=== PATIENT | female | born 1955 | race Caucasian/White ===

== ENCOUNTER 2016-07-23 06:31 | Day surgery (SDC) | payer MEDICAID ==
[2016-07-21 11:48] LABS: BASOPHILS 0.1 % (0-2); EOSINOPHILS 3.6 % (0-7); HEMATOCRIT 50.8 % (36.0-48.0); HEMOGLOBIN 16.7 g/dL (12-16); IMMATURE GRANULOCYTES 0.1 % (0-5); LYMPHOCYTES 31.1 % (15-50); MCH 31.3 pg (26.0-34.0); MCHC 32.9 g/dL (31.0-37.0); MCV 95.3 fL (80.0-100.0); MEAN PLATELET VOLUME 10.5 fL (7.4-10.4); MONOCYTES 5.4 % (2-11); NEUTROPHILS 59.7 % (40-80); PLATELET COUNT 231 10x3/uL (130-400); RBC 5.33 10x6/uL (4.00-5.40); RDW 13.4 % (11.5-14.5); WBC 7.6 10x3/uL (4.8-10.8)
[2016-07-21 11:57] LABS: CALC OSMOLALITY 271 mosm/kg (275-300); CALCIUM 9.4 mg/dL (8.5-10.1); CARBON DIOXIDE 32.6 mmol/L (21.0-32.0); CHLORIDE - SERUM 97 mmol/L (98-107); CREATININE - SERUM 0.6 mg/dL (0.6-1.3); GLUCOSE 102 mg/dL (74-106); POTASSIUM - SERUM 4.8 mmol/L (3.5-5.1); SODIUM 135 mmol/L (136-145); UREA NITROGEN 18 mg/dL (7-18); eGFR NON AFRICAN AMERICAN > 90 mL/min (90-120)
[~2016-07-23] VITALS: Ht 160 cm; Wt 80.3 kg
--- NOTE | 2016-07-23 06:27 | HP ---
PATIENT: VIRGINIA VENTURA MEDICAL RECORD: [id number] ACCOUNT: [id number] LOCATION:[facility] : 55 ADMISSION DATE: 07/23/16 HISTORY AND PHYSICAL EXAMINATION HISTORY OF PRESENT ILLNESS: This patient is a 61-year-old 2, para 2 white female referred for a high-grade ARIADNA Pap smear and for postmenopausal bleeding. She has undergone cervical cultures and an ultrasound in this office revealing a uterus of 6 cm in length and endometrial thickness of 0.64 cm, small left ovary, small right ovary consistent with menopausal status. There is also mention of an anterior endometrial lesion polyp versus neoplasm. She is scheduled for exam under anesthesia with colposcopy, indicated biopsies of cervix, possible LEEP, as well as hysteroscopy, endometrial biopsies and endometrial curettage. PAST MEDICAL HISTORY: DRUG ALLERGIES: None known. CURRENT MEDICATIONS: Levetiracetam, alprazolam, methocarbamol, citalopram, baby aspirin, ranitidine, quetiapine, primidone, hydrocodone compound, cyclobenzaprine, lisinopril, pravastatin and diltiazem. MEDICAL PROBLEMS: Include Parkinson's. She is wheelchair bound. FAMILY HISTORY: Incomplete and noncontributory. DRUG ALLERGIES: None known. PHYSICAL EXAMINATION: VITAL SIGNS: Weight is 179, blood pressure 100/60. HEENT: Grossly unremarkable. LUNGS: Clear. HEART: Regular rate and rhythm. PELVIC: Deferred for anesthesia. EXTREMITIES: No cyanosis, clubbing or edema. NEUROLOGIC: Grossly appears intact; however, the patient is wheelchair bound and carries a diagnosis of Parkinson's. IMPRESSION: Postmenopausal bleeding, Pap smear read as high-grade ARIADNA. PLAN: Examination under general anesthesia with colposcopy, possible LEEP, cervical biopsies, endocervical curettage, cervical dilatation, as well as hysteroscopy, evaluation of the endometrium with appropriate biopsies, and endometrial curettage. I have discussed all these possibilities with the patient in the presence of her access control specialist and answered all their questions. TRANSINT:[id number] Voice Confirmation ID: [id number] DOCUMENT ID: [id number] HISTORY AND PHYSICAL [id number] VIRGINIA VENTURA BRENDA MD at 0627 CC: [id number] DICTATION DATE: 07/21/16 1434 RAT FARMER: 07/21/16 1626 PRE [facility] [address], [facility]901
[~2016-07-23 06:31] MED LIST: ATIVAN1 MG PO; CARAFATE1 G PO; CHANTIX 1 MG TAB1 MG PO; NORCO 10/325 TA1 TA1 PO; PARLODEL2.5 MG PO; PHENERGAN25 M1 PO; SOMA350 MG PO; VALIUM5 MG PO; XANAX1 MG PO
[2016-07-23] MEDS ORDERED: LISINOPRIL10 MG PO (08:23)
[2016-07-23] MEDS ORDERED: KEPPRA750 MG PO (08:26)
[2016-07-23] MEDS ORDERED: ROBAXIN-750750 MG PO (08:27)
[2016-07-23] MEDS ORDERED: PRAVACHOL20 MG PO (08:28)
[2016-07-23] MEDS ORDERED: MYSOLINE 50 MG50 MG PO (08:29)
[2016-07-23] MEDS ORDERED: BAYER CHEWABLE81 MG PO (08:30)
[2016-07-23] MEDS ORDERED: ZANTAC150 MG PO (08:30)
[2016-07-23 08:34] VITALS: BP 102/55; Ht 160 cm; Wt 80.3 kg
--- NOTE | 2016-07-23 12:25 | NUR ---
ANESTHESIA REPORTS THE PATIENT IS ON HOME O2 AND HAS A HISTORY OF RESPIRITORY PROBLEMS
--- NOTE | 2016-07-24 07:34 | OP ---
PATIENT NAME: VIRGINIA VENTURA MEDICAL RECORD: [id number] :55 LOCATION:D.[facility] ADMISSION DATE: SURGEON: ANIYAH ABRAHAM MD DATE OF OPERATION: 07/23/2016 PREOPERATIVE DIAGNOSES: 1. High-grade squamous intraepithelial lesion Pap. 2. Postmenopausal bleeding. POSTOPERATIVE DIAGNOSES: 1. High-grade squamous intraepithelial lesion Pap. 2. Postmenopausal bleeding. 3. Cervical lesion, abnormal appearing endometrium. PROCEDURES: Examination under anesthesia, evaluation of the cervix using the colposcope, endometrium evaluated, endometrial and cervical biopsies taken, hysteroscopy, and endometrial curettage. SURGEON: Aniyah Abraham MD ANESTHESIA: General. FINDINGS: A narrow vagina, cervix difficult to fully visualize, a friable lesion on the cervix and a shaggy-appearing endometrium on hysteroscopy. ESTIMATED BLOOD LOSS: 50 cc. COMPLICATIONS OF PROCEDURE: None. OPERATIVE NOTE: The patient was taken to the OR and under adequate general anesthesia, prepped and draped in the usual manner for vaginal procedures. Examination under anesthesia revealed the above listed findings. The vagina was very narrow and the cervix was deviated posteriorly making full visualization of the lesions very difficult, bleeding continued throughout the procedure. The cervix was dilated to accept the hysteroscope and hysteroscopic evaluation revealed the above listed findings. The depth of the endometrial cavity was approximately 6.5 cm. Random biopsies were taken of the shaggy-appearing endometrium. The hysteroscope was then removed followed by a thorough endometrial curettage. Biopsies were taken of the cervix and sent separately. At the end of procedure, bleeding was mild and the patient went to the recovery area in good condition. TRANSINT:[id number] Voice Confirmation ID: [id number] DOCUMENT ID: [id number] ANIYAH ABRAHAM MD at 0734 CC: [id number] DICTATION DATE: 07/23/16 1212 TOP LIFTER: 07/23/161919 [facility] 07/23/16 [facility] [address] [place] [address]
== END 2016-07-23 14:05 | disposition home or self-care (01) ==
LOC: D.OPS 06:31 → D.PAN 09:45 → D.OPS 14:05
PROVIDERS: Obstetrics & Gynecology
DX: N95.0 Postmenopausal bleeding (principal); F17.200 Nicotine dependence, unspecified, uncomplicated; K21.9 Gastro-esophageal reflux disease without esophagitis; J44.9 Chronic obstructive pulmonary disease, unspecified; R53.1 Weakness

== ENCOUNTER 2016-08-24 20:10 | Observation (INO) | payer MEDICAID ==
[~2016-08-24] VITALS: Ht 160 cm; Wt 73.3 kg
[~2016-08-24 20:10] MED LIST changes: +BAYER CHEWABLE81 MG PO; +KEPPRA750 MG PO; +LISINOPRIL10 MG PO; +MYSOLINE 50 MG50 MG PO; +PRAVACHOL20 MG PO; +ROBAXIN-750750 MG PO; +ZANTAC150 MG PO
[2016-08-24 20:42] LABS: BASOPHILS 0.1 % (0-2); EOSINOPHILS 6.8 % (0-7); HEMATOCRIT 45.6 % (36.0-48.0); IMMATURE GRANULOCYTES 0.2 % (0-5); LYMPHOCYTES 34.9 % (15-50); MCH 31.1 pg (26.0-34.0); MCHC 32.9 g/dL (31.0-37.0); MCV 94.4 fL (80.0-100.0); MEAN PLATELET VOLUME 10.9 fL (7.4-10.4); MONOCYTES 7.9 % (2-11); NEUTROPHILS 50.1 % (40-80); PLATELET COUNT 212 10x3/uL (130-400); RBC 4.83 10x6/uL (4.00-5.40); RDW 13.6 % (11.5-14.5)
[2016-08-24 21:01] LABS: ALKALINE PHOSPHATASE 84 U/L (46-116); ALT (SGPT) 62 U/L (10-68); BILIRUBIN - TOTAL 0.42 mg/dL (0.2-1.3); CALC OSMOLALITY 281 mosm/kg (275-300); CALCIUM 9.3 mg/dL (8.5-10.1); CARBON DIOXIDE 29.3 mmol/L (21.0-32.0); CHLORIDE - SERUM 102 mmol/L (98-107); CREATININE - SERUM 0.5 mg/dL (0.6-1.3); GLUCOSE 119 mg/dL (74-106); POTASSIUM - SERUM 3.3 mmol/L (3.5-5.1); PROTEIN - SERUM 7.6 g/dL (6.4-8.2); SODIUM 139 mmol/L (136-145); UREA NITROGEN 22 mg/dL (7-18); eGFR NON AFRICAN AMERICAN > 90 mL/min (90-120)
[2016-08-24 22:54] LABS: APPEARANCE HAZY (CLEAR); BILIRUBIN NEGATIVE (NEGATIVE); COLOR YELLOW (YELLOW); GLUCOSE NEGATIVE (NEGATIVE); KETONE MODERATE mg/dL (NEGATIVE); LEUKOCYTE ESTERASE 1+ (NEGATIVE); NITRITE NEGATIVE (NEGATIVE); PROTEIN TRACE mg/dL (NEGATIVE); SPECIFIC GRAVITY 1.015 (1.005-1.020); UROBILINOGEN NORMAL (NORMAL)
[2016-08-24 22:56] LABS: BACTERIA FEW /hpf (NONE SEEN); RED CELLS - URINE 0-5 /hpf (0-5); UDS - AMPHET NEGATIVE QUAL (NEGATIVE); UDS - BARB POSITIVE QUAL (NEGATIVE); UDS - BENZO POSITIVE QUAL (NEGATIVE); UDS - COCAINE NEGATIVE QUAL (NEGATIVE); UDS - METH NEGATIVE QUAL (NEGATIVE); UDS - OPIATE NEGATIVE QUAL (NEGATIVE); UDS - PCP NEGATIVE QUAL (NEGATIVE); UDS - THC POSITIVE QUAL (NEGATIVE)
[2016-08-25 04:00] VITALS: BP 116/63
[2016-08-25 04:34] VITALS: BP 116/63; BMI 31.9
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
--- NOTE | 2016-08-25 07:21 | NUR ---
0648-AM ROUNDING DONE WITH PATIENT TELLING ME SHE "DOES NOT LIKE THE NAME CHAYITO". PATIENT IS ON 2L PER NC. RIGHT WRIST SEEN WITH NS INFUSING AT 75 CC/HR WITHOUT PROBLEMS. WORD SALAD, FLIGHT OF IDEAS WITH NO RANDOM THOUGHTS SHE IS TALKING TO ME. WILL CONTINUE TO MONITOR. BED ALARM IS ON.
[2016-08-25 08:22] VITALS: BP 127/74
--- NOTE | 2016-08-25 09:51 | NUR ---
NAN JORGENSEN IS ON THE PHONE. PATIENT STATES THAT I CAN TALK TO HER.
--- NOTE | 2016-08-25 10:20 | NUR ---
PATIENT IS SITTING ON SIDE OF BED WITH BED ALARM ON TALKING TO SELF. PLEASENT AFFECT. REPORTS THAT "LADY IN BLUE WITH WHITE COAT GOOD, CHAYITO GOOD NOW".
[2016-08-25 11:43] VITALS: BP 151/79
[2016-08-25 12:22] VITALS: Ht 160 cm; Wt 73.3 kg
[2016-08-25 13:04] LABS: BASOPHILS 0.1 % (0-2); EOSINOPHILS 8.2 % (0-7); HEMATOCRIT 45.8 % (36.0-48.0); HEMOGLOBIN 14.8 g/dL (12-16); IMMATURE GRANULOCYTES 0.3 % (0-5); LYMPHOCYTES 27.7 % (15-50); MCH 30.6 pg (26.0-34.0); MCHC 32.3 g/dL (31.0-37.0); MCV 94.8 fL (80.0-100.0); MEAN PLATELET VOLUME 11.4 fL (7.4-10.4); MONOCYTES 10.1 % (2-11); NEUTROPHILS 53.6 % (40-80); PLATELET COUNT 208 10x3/uL (130-400); RBC 4.83 10x6/uL (4.00-5.40); RDW 13.5 % (11.5-14.5); WBC 7.5 10x3/uL (4.8-10.8)
[2016-08-25 13:23] LABS: ALBUMIN 2.8 g/dL (3.4-5.0); ALKALINE PHOSPHATASE 78 U/L (46-116); ALT (SGPT) 60 U/L (10-68); CALC OSMOLALITY 281 mosm/kg (275-300); CALCIUM 8.5 mg/dL (8.5-10.1); CARBON DIOXIDE 30.2 mmol/L (21.0-32.0); CHLORIDE - SERUM 103 mmol/L (98-107); CREATININE - SERUM 0.5 mg/dL (0.6-1.3); GLUCOSE 106 mg/dL (74-106); POTASSIUM - SERUM 3.5 mmol/L (3.5-5.1); PROTEIN - SERUM 7.3 g/dL (6.4-8.2); SODIUM 141 mmol/L (136-145); eGFR NON AFRICAN AMERICAN > 90 mL/min (90-120)
[2016-08-25 13:24] LABS: UREA NITROGEN 15 mg/dL (7-18)
--- NOTE | 2016-08-25 15:15 | NUR ---
SCD'S ON BILATERAL LE
--- NOTE | 2016-08-25 17:35 | NUR ---
SITTING ON SIDE OF BED EATING SUPPER, CONSTANTLY TALKING TO SELF. AFFECT IS PLEASANT, NO COMBATIVNESS THIS SHIFT. BED ALARM IS ON. WILL CONTINUE TO FOLLOW AND ASSESS OFTEN.
--- NOTE | 2016-08-25 19:28 | NUR ---
ASSESSMENT COMPLETE, PT ALERT, CONFUSED TO SITUATION, PLACED AND TIME, PT DOES STATE CORRECTLY STATE NAME. RESPERATIONS EVEN ON RA. IV TO RIGHT WRIST WITH NS AT 75 CC/HR. SITE CLEAN AND DRY. PT CONSTANTLY TALKING, AND REPEATING EVERYTHING THAT SHE HEARS OTHER PEOPLE SAY. PT DENIES PAIN OR NEEDS, BED LOW, CL IN REACH, BED ALARM ON.
[2016-08-25 20:00] VITALS: BP 149/77
--- NOTE | 2016-08-25 22:16 | NUR ---
HS MEDS GIVEN WITH FRESH ICE WATER, CUP OF ORANGE JUICE GIVEN AT PT REQUEST. BED LOW, CL IN REACH, WILL CONT TO MONITOR.
--- NOTE | 2016-08-26 01:41 | NUR ---
RESTING WITH EYES CLOSED, RESPERATIONS EVEN, NO S/S DSITRESS NOTED.
--- NOTE | 2016-08-26 03:31 | NUR ---
UP WITH ASSIST TO BR, GAIT UNSTEADY, PT ABLE TO FOLLOW DIRECTIONS WELL.
--- NOTE | 2016-08-26 04:28 | NUR ---
PT TRYING TO GET OUT OF BED, GETTING AGITATED WITH STAFF, ATIVAN 1 MG GIVEN FOR S/S AGITATION.
[2016-08-26 05:25] LABS: BASOPHILS 0.1 % (0-2); EOSINOPHILS 7.1 % (0-7); HEMATOCRIT 45.3 % (36.0-48.0); HEMOGLOBIN 14.4 g/dL (12-16); IMMATURE GRANULOCYTES 0.3 % (0-5); LYMPHOCYTES 30.2 % (15-50); MCH 30.4 pg (26.0-34.0); MCHC 31.8 g/dL (31.0-37.0); MCV 95.8 fL (80.0-100.0); MEAN PLATELET VOLUME 11.2 fL (7.4-10.4); MONOCYTES 8.5 % (2-11); NEUTROPHILS 53.8 % (40-80); PLATELET COUNT 228 10x3/uL (130-400); RBC 4.73 10x6/uL (4.00-5.40); RDW 13.6 % (11.5-14.5); WBC 7.3 10x3/uL (4.8-10.8)
[2016-08-26 06:18] LABS: ALBUMIN 2.7 g/dL (3.4-5.0); ALKALINE PHOSPHATASE 78 U/L (46-116); ALT (SGPT) 58 U/L (10-68); CALC OSMOLALITY 284 mosm/kg (275-300); CALCIUM 8.3 mg/dL (8.5-10.1); CARBON DIOXIDE 28.2 mmol/L (21.0-32.0); CHLORIDE - SERUM 105 mmol/L (98-107); CREATININE - SERUM 0.5 mg/dL (0.6-1.3); GLUCOSE 135 mg/dL (74-106); POTASSIUM - SERUM 3.6 mmol/L (3.5-5.1); PROTEIN - SERUM 7.2 g/dL (6.4-8.2); SODIUM 142 mmol/L (136-145); UREA NITROGEN 13 mg/dL (7-18); eGFR NON AFRICAN AMERICAN > 90 mL/min (90-120)
--- NOTE | 2016-08-26 07:26 | NUR ---
AM ROUNDING DONE WITH PATIENT RECEIVING BREATHING TREATMENT. PATIENT TALKING TO SELF AROUND THE MOUTHPEICE. ON 2L PER NC. BED ALARM IS ON. RIGHT WRIST SEEN WITH NS INFUSING AT 75 CC/HR. ON EP, LAB VALUES ARE WNL. WILL MONITOR.
[2016-08-26 09:06] VITALS: BP 150/76
[2016-08-26 11:57] VITALS: BP 147/84
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
--- NOTE | 2016-08-26 14:55 | NUR ---
PATIENT IS RESTING WITH EYES CLOSED. RESP ARE EVEN AND NON LAOBRED. BED ALARM ON.
[2016-08-26 16:03] VITALS: BP 142/72
--- NOTE | 2016-08-26 16:43 | NUR ---
Rehab Note- Acute Rehab Prescreen order received. The patient has Medicaid and does not Acute Rehab benefits. Thank you for this referral! Danya Tolbert RN Clinical Liaison, [facility] Rehab
--- NOTE | 2016-08-26 17:15 | NUR ---
PATIENT BILATERAL LOWER ARMS ARE STARTING TO BE SLIGHTLY SWOLLEN, NOT AT IV SITE. ENCOURAGED PATIENT TO KEEP ARMS ELEVATED ON CHEST TO HELP WITH SWELLING. WILL CONTINUE TO MONITOR.
[2016-08-26 19:00] VITALS: BP 145/81
--- NOTE | 2016-08-26 19:00 | NUR ---
Patient Name: VIRGINIA VENTURA Admission Status: ER Accout number: [id number] Admission Date: 08-25-2016 : 1955 Admission Diagnosis: Attending: DANIELA Current LOS: 1 Anticipated DC Date: 08-27-2016 Planned Disposition: Home with Home Health Primary Insurance: MEDICAID [place] PLANNED EXTERNAL PROVIDER: [facility] Discharge Planning Comments: * Is the patient Alert and Oriented? Yes 0 * How many steps to enter\exit or inside your home? NONE 0 * PCP DR DE LA ROSA IN [place] 0 * Pharmacy [facility] [address] 0 * Preadmission Environment Home with Family 0 * ADLs Independent 0 * Equipment Cane Nebulizer Oxygen Walker Wheelchair 0 * Other Equipment HOME AND PORTABLE OXYGEN [facility] MEDICAL EQUIPMENT PROVIDER 0 * List name and contact numbers for known caregivers / representatives who currently or will assist patient after discharge: JAMEEL MEADE, GRANDDAUGHTER, RONEL BURKS, GRANDSON, 0 * Community resources currently utilized Other Private Duty Care 0 * Please name any agencies selected above. [employer], COMPANY UNKNOWN, 5 DAYS, 8 HOURS PER DAY. MENTAL HEALTH COUNSELING, EVERY THURSDAY. 0 * Additional services required to return to the preadmission environment? Yes * Can the patient safely return to the preadmission environment? Yes 0 * Has this patient been hospitalized within the prior 30 days at any hospital? Yes 0 CM RECEIVED ORDER FOR INPATIENT VS SNF REHAB. CM MET WITH PT IN ROOM TO DISCUSS DISCHARGE PLANNING AND NEEDS. PT REPORTS LIVING AT HOME INDEPENDENTLY WITH HER ADULT GRANDDAUGHTER AND GRANDSON. PT REPORTS HAVING ALL NEEDED MEDICAL EQUIPMENT AT HOME FROM [employer]. PT HAS PERSONAL CARE FROM MEDICAID THURSDAY THRU THURSDAY, ALL DAY. PT REPORTS HER COUNSELOR VISITS HER EVERY THURSDAY AT HOME. PT RECEIVES $773.00 PER MONTH FOR DISABILITY; PT REPORTS SHE HAS PTSD AND DEPRESSION WHICH MAKES HER UNABLE TO WORK. CM DISCUSSED ORDER, AVAILABILITY OF HOME HEALTH, REHAB SERVICES AND MEDICAL EQUIPMENT. PT DENIES NEED FOR REHAB PLACEMENT; PT IS NOT INTERESTED IN [facility] [facility] PLACEMENT, REPORTS HER GRANDSON SON WILL PICK HER UP FOR DISCHARGE HOME. CM ASKED AGAIN ABOUT HOME HEALTH SERVICES, PT REPORTS SHE HAD [facility] IN THE PAST AND SHE COULD USE THEM FOR THERAPY AT HOME TO HELP KEEP HER FROM FALLING OFF THE TOILET AGAIN. CHOICE SIGNED FOR [facility], PCP IS DR. DE LA ROSA IN [place]. PT REFUSES PLACEMENT, REPORTS PLAN TO RETURN HOME WITH ADULT GRANDCHILDREN AT DISCHARGE. PT WILL ACCEPT [facility]. CM TO ARRANGE HOME HEALTH WITH PHYSICIAN AGREEMENT AND ORDERS. Dock Loader: Terell Mendez
--- NOTE | 2016-08-26 23:02 | NUR ---
NURSE ROUNDS 19:30 - PT SITTING ON SIDE OF BED, BED ALARM GOING OFF, REQUESTING TO AMBULATE TO BATHROOM. PT IS ALERT AND ORIENTED, IS ABLE TO DISCERN WHEN TO CALL FOR HELP, AND DENIES ANY OTHER NEEDS. PT WAS ASSISTED TO BATHROOM WITH MINIMAL ASSISTANCE AND TOLD TO CALL WHEN READY TO AMBULATE BACK TO BED. PT DID CALL WHEN FINISHED, DENIES ANY OTHER NEEDS. CONTINUE TO MONITOR CLOSELY.
[2016-08-27] VITALS: BP 153/94
--- NOTE | 2016-08-27 01:04 | NUR ---
PT SITTING ON SIDE OF BED, AWAKE, ALERT, TALKING TO HERSELF, BUT IS BEING PLEASANT SO FAR. I DID GIVE PT AN ICE CREAM AND TALL GLASS OF ICE WATER PER PT REQUEST. DENIES ANY NEEDS. CONTINUE TO MONITOR CLOSELY.
--- NOTE | 2016-08-27 03:50 | NUR ---
PT RESTING COMFORTABLY, EYES CLOSED, RESPIRATIONS EVEN AND UNLABORED. CONTINUE TO MONITOR CLOSELY.
[2016-08-27 04:00] VITALS: BP 135/71
[2016-08-27 05:56] LABS: BASOPHILS 0.3 % (0-2); HEMATOCRIT 42.1 % (36.0-48.0); HEMOGLOBIN 13.4 g/dL (12-16); IMMATURE GRANULOCYTES 0.3 % (0-5); MCH 30.5 pg (26.0-34.0); MCHC 31.8 g/dL (31.0-37.0); MCV 95.7 fL (80.0-100.0); NEUTROPHILS 59.4 % (40-80); PLATELET COUNT 220 10x3/uL (130-400); RDW 13.5 % (11.5-14.5); WBC 7.9 10x3/uL (4.8-10.8)
[2016-08-27 06:19] LABS: ALBUMIN 2.6 g/dL (3.4-5.0); ALKALINE PHOSPHATASE 73 U/L (46-116); ALT (SGPT) 46 U/L (10-68); BILIRUBIN - TOTAL 0.32 mg/dL (0.2-1.3); CALCIUM 8.3 mg/dL (8.5-10.1); CARBON DIOXIDE 28.6 mmol/L (21.0-32.0); CHLORIDE - SERUM 104 mmol/L (98-107); CREATININE - SERUM 0.5 mg/dL (0.6-1.3); GLUCOSE 109 mg/dL (74-106); POTASSIUM - SERUM 3.2 mmol/L (3.5-5.1); PROTEIN - SERUM 6.6 g/dL (6.4-8.2); SODIUM 141 mmol/L (136-145); eGFR NON AFRICAN AMERICAN > 90 mL/min (90-120)
[2016-08-27 06:22] LABS: CALC OSMOLALITY 279 mosm/kg (275-300); UREA NITROGEN 8 mg/dL (7-18)
--- NOTE | 2016-08-27 06:55 | NUR ---
POTASSIUM GIVEN PER EP WITH ORANGE JUICE. ALSO PT REQUESTED A BANANA BE ADDED TO HER BREAKFAST TRAY THIS MORNING. CONTINUE TO MONITOR.
[2016-08-27 07:00] VITALS: BP 153/94
[2016-08-27 12:00] VITALS: BP 151/87
[2016-08-27 16:00] VITALS: BP 144/84
--- NOTE | 2016-08-27 18:44 | NUR ---
PT VOMITED 600ML OF GREENISH EMESIS ALONG WITH SOME FOOD PARTICLES. PT STATES "I DIDNT KNOW I WAS SICK BUT YUCK, ITS YUCKY" PROVIDED PT WITH CLEAN WASH CLOTH AND ASSISTED CLEANING HER UP. PT DENIES ANY FURTHER NEEDS AT THIS TIME, FAMILY AT BEDSIDE, WILL CTM.
[2016-08-27 19:00] VITALS: BP 159/95
--- NOTE | 2016-08-27 19:37 | NUR ---
RECEIVED REPORT, PT IS UP IN CHAIR, CALL LIGHT IN REACH, WILL CONTINUE PLAN OF CARE
--- NOTE | 2016-08-27 20:12 | NUR ---
PT REFUSING MEDS, HAS TAKEN IV OUT, STATES SHE IS LEAVING WEATHER IS GOES OUT DOOR OR ROSALIND, EXPLAINNED SHE WOULD HAVE TO SIGN OUT AMA,SHE CALLED GRANDSON RONEL HE SAID SHE HAD TO STAY HERE,
--- NOTE | 2016-08-27 21:28 | NUR ---
PT FINALLY TOOK MEDS, SAID SHE WILL STAY UNTIL MORNING
--- NOTE | 2016-08-27 21:30 | NUR ---
EL SAID NEEDS TO BE IN ICU OR HAVE A ONE ON ONE SITTER, TOLD JONH WHAT EL SAID, SHE SAID OK
[2016-08-28] VITALS: BP 148/67
--- NOTE | 2016-08-28 01:11 | NUR ---
CROP RESEARCH SCIENTIST AT BEDSIDE TO OBTAIN VITALS, CALL LIGHT IN REACH. WILL CONTINUE WITH PLAN OF CARE.
--- NOTE | 2016-08-28 03:20 | NUR ---
PT APOLOGIZED FOR BEHAVIOR LASTNIGHT
--- NOTE | 2016-08-28 03:32 | NUR ---
ASSESSMENT COMPLETE, PT SITTING UP ON SIDE OF BED, DENIES ANY NEEDS AT THIS TIME, BED IS LOW, SRX2, BED ALARM IS ON, WILL CONTINUE PLAN OF CARE
[2016-08-28 04:00] VITALS: BP 150/91
[2016-08-28 05:20] LABS: BASOPHILS 0.1 % (0-2); EOSINOPHILS 3.2 % (0-7); HEMATOCRIT 44.5 % (36.0-48.0); HEMOGLOBIN 14.6 g/dL (12-16); IMMATURE GRANULOCYTES 0.1 % (0-5); LYMPHOCYTES 22.9 % (15-50); MCH 30.9 pg (26.0-34.0); MCHC 32.8 g/dL (31.0-37.0); MCV 94.1 fL (80.0-100.0); MEAN PLATELET VOLUME 11.2 fL (7.4-10.4); MONOCYTES 7.5 % (2-11); NEUTROPHILS 66.2 % (40-80); RBC 4.73 10x6/uL (4.00-5.40); RDW 13.3 % (11.5-14.5); WBC 9.7 10x3/uL (4.8-10.8)
[2016-08-28 05:27] LABS: PLATELET COUNT 268 10x3/uL (130-400)
[2016-08-28 05:36] LABS: ALKALINE PHOSPHATASE 78 U/L (46-116); ALT (SGPT) 55 U/L (10-68); CALC OSMOLALITY 270 mosm/kg (275-300); CARBON DIOXIDE 23.3 mmol/L (21.0-32.0); CHLORIDE - SERUM 99 mmol/L (98-107); CREATININE - SERUM 0.4 mg/dL (0.6-1.3); GLUCOSE 87 mg/dL (74-106); POTASSIUM - SERUM 3.5 mmol/L (3.5-5.1); PROTEIN - SERUM 7.8 g/dL (6.4-8.2); SODIUM 137 mmol/L (136-145); UREA NITROGEN 6 mg/dL (7-18); eGFR NON AFRICAN AMERICAN > 90 mL/min (90-120)
--- NOTE | 2016-08-28 07:40 | NUR ---
ASSESSMENT DONE. DENIES NEEDS.
[2016-08-28 08:57] VITALS: BP 154/91
--- NOTE | 2016-08-28 09:27 | NUR ---
UP ADLIB IN ROOM. GAIT STEADY. WILL MONITOR NEEDS.
--- NOTE | 2016-08-28 12:10 | NUR ---
Nutrition follow-up: Diet: Regular PO intake 75-100% of most meals Labs reviewed Wt: 161# RDN following.
[2016-08-28 12:13] VITALS: BP 156/94
[2016-08-28] MEDS ORDERED: FLORAJEN3 CAPS460 MG PO (13:28)
[2016-08-28] MEDS ORDERED: MACROBID100 MG PO (13:29)
--- NOTE | 2016-08-28 15:13 | NUR ---
PATIENT IS TO BE DISCHARGED HOME TODAY. SHE IS REQUESTING [facility]. ORDERS FAXED TO [facility], , ALONG WITH DISCHARGE PAPERWORK. I SPOKE WITH JUDY AND THEY WILL BE ABLE TO SEE THE PATIENT ON THURSDAY FOR FIRST VISIT. PATIENT IS AGREEABLE WITH THIS AND NO FURTHER DISCHARGE NEEDS IDENTIFIED.
--- NOTE | 2016-08-28 15:27 | NUR ---
SPOKE WITH BESSIE AT [facility]. SHE STATES THAT AQUATIC LIFE LABORER, LADI, IS COMING TO TALK WITH PATIENT ABOUT RESPITE CARE PLACEMENT. SHE STATES SHE IS ON HER WAY. SHE WILL LET US KNOW THE PLAN AFTER SHE MEETS WITH PATIENT.
[2016-08-28 15:59] VITALS: BP 144/93
--- NOTE | 2016-08-28 16:37 | NUR ---
WITHOUT CHANGES OR DISTRESS NOTED AT THIS TIME.
--- NOTE | 2016-08-28 16:51 | NUR ---
DC GIVEN TO PT
--- NOTE | 2016-08-28 16:53 | NUR ---
DC HOME PER PERSONAL CAR
== END 2016-08-28 16:53 | disposition home health service (06) ==
LOC: D.ER 20:10 → D.M2 08-25 02:35 → OBSVTIME 08-25 02:35 → D.M2 08-28 16:53
PROVIDERS: Emergency Medicine Emergency Medical Services; ADMIT Family Medicine Adult Medicine
DX: N39.0 Urinary tract infection, site not specified (principal); R41.82 Altered mental status, unspecified; C53.9 Malignant neoplasm of cervix uteri, unspecified; F32.9 Major depressive disorder, single episode, unspecified; F43.10 Post-traumatic stress disorder, unspecified; I10 Essential (primary) hypertension; J44.9 Chronic obstructive pulmonary disease, unspecified; Z86.73 Personal history of transient ischemic attack (TIA), and cerebral infarction without residual deficits; J96.10 Chronic respiratory failure, unspecified whether with hypoxia or hypercapnia; G20 Parkinson's disease; G62.9 Polyneuropathy, unspecified; E87.6 Hypokalemia; F12.90 Cannabis use, unspecified, uncomplicated; F19.90 Other psychoactive substance use, unspecified, uncomplicated; Z87.891 Personal history of nicotine dependence